=== PATIENT | female | born 1985 | race Caucasian/White ===

== ENCOUNTER 2020-05-25 05:50 | Inpatient (IN) | payer MEDICAID ==
[2020-05-25] MEDS ORDERED: Lactated Ringers 1,000 ML IV SCH ×2 (06:00→07:00)
[2020-05-25] MEDS ORDERED: fentaNYL 100 MCG/2 ML SDV IVPUSH PRN (06:01)
[2020-05-25] MEDS ORDERED: Ondansetron 4 MG/2 ML SDV ONE (06:36)
[2020-05-25] MEDS ORDERED: Ondansetron 4 MG/2 ML SDV IVPUSH PRN (06:46)
[2020-05-25] MEDS ORDERED: Acetaminophen 325 MG Tab PO PRN ×2 (06:46→08:36)
[2020-05-25] MEDS ORDERED: Methylergonovine 0.2 MG/1 ML Amp IM PRN ×2 (06:46)
[2020-05-25] MEDS ORDERED: Carboprost Tromethamine 250 MCG/1 ML Amp IM PRN ×3 (06:46→08:36)
[2020-05-25] MEDS ORDERED: Misoprostol 400 MCG (4 X 100 MCG TAB) RECTAL PRN ×2 (06:46→08:36)
[2020-05-25] MEDS ORDERED: Lactated Ringers 1,000 ML IV ONE (06:46)
[2020-05-25] MEDS ORDERED: Tranexamic Acid 1,000 MG in Sodium Chloride 0.9% 100 ML IV PRN ×2 (06:46→08:36)
[2020-05-25] MEDS ORDERED: Lidocaine 1% 30 ML SDV INJECT PRN (06:46)
[2020-05-25] MEDS ORDERED: Sodium Chloride 0.9% 10 ML Syringe FLUSH PRN ×2 (06:46→08:36)
[2020-05-25] MEDS ORDERED: Oxytocin/Normal Saline 30 UNIT/500 ML BAG IV SCH (07:00)
[2020-05-25] MEDS ORDERED: Misoprostol 25 MCG (1/4 of 100 MCG) Tab VAG SCH (07:00)
[2020-05-25] MEDS ORDERED: fentaNYL 100 MCG/2 ML SDV ONE (07:06)
[2020-05-25] MEDS ORDERED: EPINEPHrine 1 MG/1 ML Amp ONE ×2 (07:06→18:39)
--- NOTE | 2020-05-25 07:20 | PCM.LDHP ---
L&D History of Present Illness - General Date of Service: 05/25/20 Admit Problem/Dx: Patient Status Order with Admit Dx/Problem 05/25/20 06:46 Patient Status [ADT] Routine Admission Diagnosis/Problem Admission Diagnosis/Problem Labor established Source of Information: Patient - History of Present Illness Introduction:: Patient is a at 31w1d who presented to for contractions last night. Her contractions started around 11 PM but have picked up in frequency. She though she lost her mucous plug around 1 AM. Contractions are becoming more painful. She's had no leakage of fluid or vaginal bleeding. Patient presented to the clinic for a 30 week OB check up but heart tones were not found. Ultrasound confirmed a demise. Fetus was measuring around 22-23 weeks. Arrangement had been made for induction of labor tonight at midnight at [facility] in [place], [place] with Dr. Vicente. Upon arrival to the floor, patient is very uncomfortable with contractions and breathing through them. Per nurse VE, she is 2+ with bulging bag and unknown presenting parts. Patient denies any recent fever, chills, abdominal pain, foul smelling discharge, nausea, vomiting, headache, vision changes, or increased swelling. 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 : 3 Para: 1 Musculoskeletal History: Reports: None Neurological History: Reports: None Psychiatric History: Reports: Anxiety Endocrine/Metabolic History: Reports: None Hematologic History: Reports: None Dermatologic History: Reports: None - Past Surgical History Head Surgeries/Procedures: Reports: None Social & Family History - Family History Family Medical History: No Pertinent Family History Cardiac: Reports: Heart Failure - Tobacco Use Tobacco Use Status *Q: Current Every Day Tobacco User - Tobacco Core Measures Tobacco Use/Smoking Within Last 30 Days: Yes - Caffeine Use Caffeine Use: Reports: None - Alcohol Use Alcohol Use History: No - Recreational Drug Use Recreational Drug Use: No Drug Use in Last 12 Months: No - Sexual History Sexual History: Reports: Sexually Active, Single Partner - Living Situation & Occupation Living situation: Reports: with Significant Other Occupation: Employed H&P Review of Systems - Review of Systems: Review Of Systems: See Below General: Denies: Fever, Chills, Weakness HEENT: Denies: Headaches, Sinus Congestion, Sore Throat, Visual Changes Pulmonary: Denies: Shortness of Breath, Cough Cardiovascular: Denies: Chest Pain, Edema, Lightheadedness, Blood Pressure Problem Gastrointestinal: Reports: Constipation. Denies: Abdominal Pain, Diarrhea, Nausea, Vomiting Genitourinary: Denies: Discharge Musculoskeletal: Denies: Muscle Pain Skin: Denies: Rash Neurological: Denies: Dizziness, Headache, Weakness L&D Exam - Exam Exam: See Below - Vital Signs Vital Signs: Last Vital Signs Temp 99.7 F 05/25/20 05:52 Pulse 81 05/25/20 05:52 Resp 18 05/25/20 05:52 BP 129/66 05/25/20 05:52 Pulse Ox Weight: 189 lb - OB Specific Fundal Height In cm: 23 Contraction Duration (sec): 40-80 Contraction Frequency (min): 2-3 Contraction Intensity: Moderate to Strong - Cabrera Score Cabrera Score Cervix Position: Midposition Cabrera Score Consistency: Soft Cabrera Score Effacement: 51-70% Cabrera Score Dilation: 3-4 cm - Exam General: Alert, Oriented HEENT: Conjunctiva Clear, Hearing Intact, Pupils Equal, Pupils Reactive Neck: Supple, Trachea Midline Lungs: Clear to Auscultation, Normal Respiratory Effort Cardiovascular: Regular Rate, Regular Rhythm, Normal S1, Normal S2 GI/Abdominal Exam: Soft, Non-Tender, No Distention Extremities: Normal Inspection, Non-Tender, No Pedal Edema Skin: Warm, Dry, Intact Neurological: Reflexes Equal Bilateral. No: Focal Deficit Psychiatric: Alert, Normal Affect, Normal Mood - Patient Data Lab Results Last 24 hrs: Laboratory Results - last 24 hr 05/25/20 05/25/20 Range/Units 05:50 06:25 WBC 14.6 H (5.0-10.0) 10^3/uL RBC 3.98 L (4.2-5.4) 10^6/uL Hgb 14.1 (12.0-16.0) g/dL Hct 38.8 (37.0-47.0) % MCV 97.5 (80-100) fL MCH 35.4 H (27.0-34.0) pg MCHC 36.3 H (33.0-35.0) g/dL Plt Count 278 (150-450) 10^3/uL SARS CoV-2 RNA Rapid GEORGE Negative (NEGATIVE) Result Diagrams: 05/25/20 06:25 - Problem List (1) demise in antonio greater than 22 weeks gestation, antepartum SNOMED Code(s): 67231539, 036890139 ICD Code: O36.4XX0 - MATERNAL CARE FOR INTRAUTERINE , NOT APPLICABLE OR UNSP Status: Acute (2) Rubella immune SNOMED Code(s): 454664924 ICD Code: Z78.9 - OTHER SPECIFIED HEALTH STATUS Status: Acute (3) Tobacco use disorder SNOMED Code(s): 746570977 ICD Code: F17.200 - NICOTINE DEPENDENCE, UNSPECIFIED, UNCOMPLICATED Status: Acute Problem List Initiated/Reviewed/Updated: Yes Orders Last 24hrs: Active Orders 24 hr Category Date Time Status Patient Status [ADT] Routine ADT 05/25/20 06:46 Active Notify Provider Vital Signs OB [RC] ASDIRECTED Care 05/25/20 06:46 Active Notify Provider [RC] PRN Care 05/25/20 06:46 Active POC Labs [RC] ASDIRECTED Care 05/25/20 06:46 Active Pump Management, Intrathecal [RC] ASDIRECTED Care 05/25/20 06:50 Active Up ad Teresa [RC] ASDIRECTED Care 05/25/20 06:46 Active Vital Signs [RC] PER UNIT ROUTINE Care 05/25/20 06:46 Active Nothing Per Oral Diet [DIET] Diet 05/25/20 Breakfast Active TYPE AND SCREEN [BBK] Routine Lab 05/25/20 06:25 Received Acetaminophen [TylenoL] Med 05/25/20 06:46 Ordered 650 mg PO Q4H PRN Carboprost Tromethamine [Hemabate DS] Med 05/25/20 06:46 Ordered 250 mcg IM ASDIRECTED PRN Carboprost Tromethamine [Hemabate DS] Med 05/25/20 06:46 Ordered 250 mcg IM ASDIRECTED PRN Lactated Ringers [Ringers, Lactated] 1,000 ml Med 05/25/20 06:00 Active IV ASDIRECTED Lactated Ringers [Ringers, Lactated] 1,000 ml Med 05/25/20 07:00 Ordered IV ASDIRECTED Lactated Ringers [Ringers, Lactated] 1,000 ml Med 05/25/20 06:46 Ordered IV BOLUS Lidocaine 1% [Xylocaine-MPF 1%] Med 05/25/20 06:46 Ordered 30 ml INJECT ASDIRECTED PRN Methylergonovine [Methergine] Med 05/25/20 06:46 Ordered 0.2 mg IM ASDIRECTED PRN Methylergonovine [Methergine] Med 05/25/20 06:46 Ordered 0.2 mg IM ASDIRECTED PRN Ondansetron [Zofran] Med 05/25/20 06:46 Ordered 4 mg IVPUSH Q4H PRN Oxytocin/Normal Saline [Pitocin in NS 30 UNIT/500 ML] Med 05/25/20 07:00 Ordered 30 unit in 500 ml IV TITRATE Sodium Chloride 0.9% [Saline Flush] Med 05/25/20 06:46 Ordered 10 ml FLUSH ASDIRECTED PRN Tranexamic Acid [Cyklokapron] 1,000 mg Med 05/25/20 06:46 Ordered Sodium Chloride 0.9% [Normal Saline] 100 ml IV ONETIME fentaNYL [Sublimaze] Med 05/25/20 06:01 Active 100 mcg IVPUSH Q1H PRN miSOPROStoL [Cytotec] Med 05/25/20 07:00 Ordered 25 mcg VAG Q4H miSOPROStoL [Cytotec] Med 05/25/20 06:46 Ordered 800 mcg RECTAL ASDIRECTED PRN Saline Lock Insert [OM.PC] Routine Oth 05/25/20 06:46 Ordered Resuscitation Status Routine Resus Stat 05/25/20 06:46 Ordered Medication Orders Acetaminophen (Tylenol) 650 mg PO Q4H PRN PRN Reason: Pain (Mild 1-3) and fever Carboprost Tromethamine (Hemabate Ds) 250 mcg IM ASDIRECTED PRN PRN Reason: HEMORRHAGE Carboprost Tromethamine (Hemabate Ds) 250 mcg IM ASDIRECTED PRN PRN Reason: Post Hemorrhage Fentanyl (Sublimaze) 100 mcg IVPUSH Q1H PRN PRN Reason: Pain Last Admin: 05/25/20 06:12 Dose: 100 mcg Documented by: NICMEG Lactated Ringer's (Ringers, Lactated) 1,000 mls @ 125 mls/hr IV ASDIRECTED NUNU Lactated Ringer's (Ringers, Lactated) 1,000 mls @ 999 mls/hr IV BOLUS ONE Stop: 05/25/20 07:46 Lactated Ringer's (Ringers, Lactated) 1,000 mls @ 125 mls/hr IV ASDIRECTED NUNU Tranexamic Acid 1,000 mg/ (Sodium Chloride) 110 mls @ 660 mls/hr IV ONETIME PRN PRN Reason: Bleeding Oxytocin/Sodium Chloride (Pitocin In Ns 30 Unit/500 Ml) 30 unit in 500 mls @ 2 mls/hr IV TITRATE NUNU; Protocol Lidocaine HCl (Xylocaine-Mpf 1%) 30 ml INJECT ASDIRECTED PRN PRN Reason: Perineal Repair Methylergonovine Maleate (Methergine) 0.2 mg IM ASDIRECTED PRN PRN Reason: Hemorrhage Methylergonovine Maleate (Methergine) 0.2 mg IM ASDIRECTED PRN PRN Reason: Post Hemorrhage Misoprostol (Cytotec) 800 mcg RECTAL ASDIRECTED PRN PRN Reason: Hemorrhage Misoprostol (Cytotec) 25 mcg VAG Q4H NUNU Stop: 05/25/20 15:01 Ondansetron HCl (Zofran) 4 mg IVPUSH Q4H PRN PRN Reason: Nausea/Vomiting Sodium Chloride (Saline Flush) 10 ml FLUSH ASDIRECTED PRN PRN Reason: Keep Vein Open Assessment/Plan Comment:: Patient jerry every 3-4 minutes and very uncomfortable with contractions. Fetus is only measuring 22-23 weeks and she is making cervical change. Current r oad conditions would make travel slow and hazardous so patient will be admitted to L&D here. Labs ordered including type and screen. Discussed pain control with patient and she can get intrathecal at any time. Fentanyl will be available until then. Discussed demise work up with the parents and they would like to proceed with an autopsy and chromosome work up if the cost is reasonable. I will talk with lab to see if we can get them this information. Placenta will be sent to pathology. Post hemorrhage precautions in place. Will utilize pitocin if contractions slow down. Will monitor closely for signs of infection. Kelly Jones MD
--- NOTE | 2020-05-25 07:43 | PCM.PRNOTE ---
- Free Text/Narrative Note: Requested to provide analgesia to full term patient in severe pain. Upon entering the room, patient is sitting on edge of bed complaining of severe abdominal/pelvic pain and discomfort. Procedure was discussed with patient including adverse outcomes and expectations. Pt consented to analgesia, SAB/IT. Pt placed into a proper sitting position. Landmarks for SAB/IT were identified and marked. Hands were washed and appropriate PPE was applied. Back was prepped with betadine x3. A sterile, transparent, fenestrated drape was applied. Excess betadine was removed. Using 3 mL of a 1% lidocaine solution, a skin wheel was placed at the L2/L3 interspace. A 24 ga (4 inch) Pencan spinal needle was inserted until positive for CSF. Negative for heme or paresthesias. Injected fentanyl 25 mcg, sufentanil 25 mcg, and 7.5 mg of a 0.75% bupivacaine solution with an epi wash. Pt was placed left lateral tilt position for approximately 20 minutes. There were zero complications or adverse outcomes. Will continue to monitor. Procedure Date & Time: 05/25/2020 [id number]
[2020-05-25] MEDS ORDERED: Oxytocin 10 Units/1 ML SDV IM PRN (08:36)
[2020-05-25] MEDS ORDERED: Zolpidem 5 MG Tab PO PRN (08:36)
[2020-05-25] MEDS ORDERED: Ibuprofen 800 MG Tab PO PRN (08:36)
[2020-05-25] MEDS ORDERED: Benzocaine/Menthol 20%-0.5% Spray 56 GM Canister TOP PRN (08:36)
[2020-05-25] MEDS ORDERED: Simethicone 80 MG Tab.Chew PO PRN (08:36)
[2020-05-25] MEDS ORDERED: Docusate Sodium 100 MG Cap PO PRN (08:36)
[2020-05-25] MEDS ORDERED: Prenatal Multivitamin with Calcium/Folic Acid/Iron Tab PO SCH (09:00)
[2020-05-25 14:20] VITALS: BP 109/52; PULSE 62
--- NOTE | 2020-05-25 16:09 | PCM.DEL ---
L & D Note - General Info Date of Service: 05/25/20 - Delivery Note Labor: Spontaneous Delivery Outcome: Stillbirth Delivery Method: Spontaneous Vaginal Delivery-Single Presentation: Unable to Assess Anesthesia Type: Intrathecal Episiotomy Type: None Laceration: None Placenta: Intact, Spontaneous Delivery Comments (Free Text/Narrative):: Patient is female with known 30 week demise who presented to L&D via ambulance in active labor. She was given an intrathecal and stillborn was delivered en caul. Cord was cut and infant was cleaned and wrapped and given to mother to hold. Placenta delivered spontaneously intact, very firm and calcified. Uterus was firm with no bleeding. Mother remained in stable condition. Placenta sent to pathology. Infant remained in room with mother. - General Info Date of Service: 05/25/20 - Patient Data Vitals - Most Recent: Last Vital Signs Temp 99.3 F 05/25/20 10:00 Pulse 62 05/25/20 10:05 Resp 12 05/25/20 07:45 BP 109/52 L 05/25/20 10:05 Pulse Ox 100 05/25/20 08:15 Weight - Most Recent: 189 lb I&O - Last 24 Hours: Intake & Output 05/25/20 05/25/20 05/25/20 06:59 14:59 22:59 Intake Total 2400 Balance 2400 Lab Results Last 24 Hours: Laboratory Results - last 24 hr 05/25/20 05/25/20 05/25/20 Range/Units 05:50 06:25 06:25 WBC 14.6 H (5.0-10.0) 10^3/uL RBC 3.98 L (4.2-5.4) 10^6/uL Hgb 14.1 (12.0-16.0) g/dL Hct 38.8 (37.0-47.0) % MCV 97.5 (80-100) fL MCH 35.4 H (27.0-34.0) pg MCHC 36.3 H (33.0-35.0) g/dL Plt Count 278 (150-450) 10^3/uL SARS CoV-2 RNA Rapid GEORGE Negative (NEGATIVE) Blood Type A POSITIVE Gel Antibody Screen Negative Med Orders - Current: Current Medications Acetaminophen (Tylenol) 650 mg PO Q4H PRN PRN Reason: Pain (Mild 1-3) and fever Acetaminophen (Tylenol) 650 mg PO Q6H PRN PRN Reason: mild pain or fever Benzocaine/Menthol (Dermoplast Pain Relief [place]) 0 gm TOP Q4H PRN PRN Reason: Perineal comfort measures Carboprost Tromethamine (Hemabate Ds) 250 mcg IM ASDIRECTED PRN PRN Reason: HEMORRHAGE Carboprost Tromethamine (Hemabate Ds) 250 mcg IM ASDIRECTED PRN PRN Reason: Post Hemorrhage Carboprost Tromethamine (Hemabate Ds) 250 mcg IM ASDIRECTED PRN PRN Reason: Excessive vaginal bleeding Docusate Sodium (Colace) 100 mg PO BID PRN PRN Reason: Constipation Fentanyl (Sublimaze) 100 mcg IVPUSH Q1H PRN PRN Reason: Pain Last Admin: 05/25/20 06:12 Dose: 100 mcg Documented by: Lactated Ringer's (Ringers, Lactated) 1,000 mls @ 125 mls/hr IV ASDIRECTED NUNU Last Admin: 05/25/20 07:20 Dose: 125 mls/hr Documented by: Lactated Ringer's (Ringers, Lactated) 1,000 mls @ 125 mls/hr IV ASDIRECTED NUNU Tranexamic Acid 1,000 mg/ (Sodium Chloride) 110 mls @ 660 mls/hr IV ONETIME PRN PRN Reason: Bleeding Oxytocin/Sodium Chloride (Pitocin In Ns 30 Unit/500 Ml) 30 unit in 500 mls @ 2 mls/hr IV TITRATE NUNU; Protocol Last Titration: 05/25/20 10:56 Dose: 0 munits/min, 0 mls/hr Documented by: Tranexamic Acid 1,000 mg/ (Sodium Chloride) 110 mls @ 660 mls/hr IV ONETIME PRN PRN Reason: Bleeding Ibuprofen (Motrin) 800 mg PO Q8H PRN PRN Reason: Mild Pain or Fever Lidocaine HCl (Xylocaine-Mpf 1%) 30 ml INJECT ASDIRECTED PRN PRN Reason: Perineal Repair Methylergonovine Maleate (Methergine) 0.2 mg IM ASDIRECTED PRN PRN Reason: Hemorrhage Methylergonovine Maleate (Methergine) 0.2 mg IM ASDIRECTED PRN PRN Reason: Post Hemorrhage Misoprostol (Cytotec) 800 mcg RECTAL ASDIRECTED PRN PRN Reason: Hemorrhage Misoprostol (Cytotec) 800 mcg RECTAL ONETIME PRN PRN Reason: Hemorrhage Ondansetron HCl (Zofran) 4 mg IVPUSH Q4H PRN PRN Reason: Nausea/Vomiting Oxytocin (Pitocin) 10 unit IM ONETIME PRN PRN Reason: Bleeding Prenat Multivit/[place]/Iron/Folic Ac ( Plus Iron) 1 each PO DAILY NUNU Simethicone (Simethicone) 80 mg PO Q4H PRN PRN Reason: Gas Sodium Chloride (Saline Flush) 10 ml FLUSH ASDIRECTED PRN PRN Reason: Keep Vein Open Sodium Chloride (Saline Flush) 10 ml FLUSH ASDIRECTED PRN PRN Reason: Keep Vein Open Zolpidem Tartrate (Ambien) 5 mg PO BEDTIME PRN PRN Reason: Insomnia Discontinued Medications Epinephrine HCl (Adrenalin) Confirm Administered Dose 1 mg .ROUTE .STK-MED ONE Stop: 05/25/20 07:07 Fentanyl (Sublimaze) Confirm Administered Dose 100 mcg .ROUTE .STK-MED ONE Stop: 05/25/20 07:07 Lactated Ringer's (Ringers, Lactated) 1,000 mls @ 999 mls/hr IV BOLUS ONE Stop: 05/25/20 07:46 Last Admin: 05/25/20 06:45 Dose: 999 mls/hr Documented by: Misoprostol (Cytotec) 25 mcg VAG Q4H NUNU Stop: 05/25/20 15:01 Ondansetron HCl (Zofran) Confirm Administered Dose 4 mg .ROUTE .STK-MED ONE Stop: 05/25/20 06:37 Last Admin: 05/25/20 06:45 Dose: 4 mg Documented by: Sufentanil Citrate (Sufenta) Confirm Administered Dose 50 mcg .ROUTE .STK-MED ONE Stop: 05/25/20 07:07 - Problem List & Annotations (1) demise in antonio greater than 22 weeks gestation, antepartum SNOMED Code(s): 50642470, 986906781 Code(s): O36.4XX0 - MATERNAL CARE FOR INTRAUTERINE , NOT APPLICABLE OR UNSP Status: Acute (2) Rubella immune SNOMED Code(s): 728888023 Code(s): Z78.9 - OTHER SPECIFIED HEALTH STATUS Status: Acute (3) Tobacco use disorder SNOMED Code(s): 861688273 Code(s): F17.200 - NICOTINE DEPENDENCE, UNSPECIFIED, UNCOMPLICATED Status: Acute (4) Stillbirth with normal delivery SNOMED Code(s): 171724703 Code(s): Z37.1 - SINGLE STILLBIRTH Status: Acute - Problem List Review Problem List Initiated/Reviewed/Updated: Yes - My Orders Last 24 Hours: My Active Orders 05/25/20 06:00 Lactated Ringers [Ringers, Lactated] 1,000 ml IV ASDIRECTED 05/25/20 06:01 fentaNYL [Sublimaze] 100 mcg IVPUSH Q1H PRN 05/25/20 06:46 Patient Status [ADT] Routine Notify Provider Vital Signs OB [RC] ASDIRECTED POC Labs [RC] ASDIRECTED Up ad Teresa [RC] ASDIRECTED Vital Signs [RC] ,20 Acetaminophen [TylenoL] 650 mg PO Q4H PRN Carboprost Tromethamine [Hemabate DS] 250 mcg IM ASDIRECTED PRN Carboprost Tromethamine [Hemabate DS] 250 mcg IM ASDIRECTED PRN Lidocaine 1% [Xylocaine-MPF 1%] 30 ml INJECT ASDIRECTED PRN Methylergonovine [Methergine] 0.2 mg IM ASDIRECTED PRN Methylergonovine [Methergine] 0.2 mg IM ASDIRECTED PRN Ondansetron [Zofran] 4 mg IVPUSH Q4H PRN Sodium Chloride 0.9% [Saline Flush] 10 ml FLUSH ASDIRECTED PRN Tranexamic Acid [Cyklokapron] 1,000 mg Sodium Chloride 0.9% [Normal Saline] 100 ml IV ONETIME miSOPROStoL [Cytotec] 800 mcg RECTAL ASDIRECTED PRN Saline Lock Insert [OM.PC] Routine Resuscitation Status Routine 05/25/20 07:00 Lactated Ringers [Ringers, Lactated] 1,000 ml IV ASDIRECTED Oxytocin/Normal Saline [Pitocin in NS 30 UNIT/500 ML] 30 unit in 500 ml IV TITRATE 05/25/20 Breakfast Regular Diet [DIET] 05/25/20 08:36 Acetaminophen [TylenoL] 650 mg PO Q6H PRN Benzocaine/Menthol [Dermoplast Pain Relief [place]] See Dose Instructions TOP Q4H PRN Carboprost Tromethamine [Hemabate DS] 250 mcg IM ASDIRECTED PRN Docusate Sodium [Colace] 100 mg PO BID PRN Ibuprofen [Motrin] 800 mg PO Q8H PRN Oxytocin [Pitocin] 10 unit IM ONETIME PRN Simethicone 80 mg PO Q4H PRN Sodium Chloride 0.9% [Saline Flush] 10 ml FLUSH ASDIRECTED PRN Tranexamic Acid [Cyklokapron] 1,000 mg Sodium Chloride 0.9% [Normal Saline] 100 ml IV ONETIME Zolpidem [Ambien] 5 mg PO BEDTIME PRN miSOPROStoL [Cytotec] 800 mcg RECTAL ONETIME PRN Assess Lochia [WOMSER] Per Unit Routine Assess Uterine Involution [WOMSER] Per Unit Routine Breast Pump [WOMSER] Per Unit Routine Ice Therapy [OM.PC] Per Unit Routine Perineal Care [OM.PC] Per Unit Routine Saline Lock Insert [OM.PC] Urgent Sitz Bath [OM.PC] Per Unit Routine 05/25/20 08:37 Vital Signs [RC] PFP 05/25/20 09:00 Vit with Ca/FA/Iron [ Plus Iron] 1 each PO DAILY 05/25/20 Lunch Regular Diet [DIET] 05/25/20 Dinner Regular Diet [DIET]
[2020-05-25] MEDS ORDERED: fentaNYL 100 MCG/2 ML SDV ITHECAL ONE (18:39)
--- NOTE | 2020-05-26 09:40 | PCM.DCSUM1 ---
Discharge Summary - Hospital Course Free Text/Narrative:: Patient is female who delivered stillborn at 31w1d. She has been feeling well, urinating spontaneously. She is walking without difficulty. Her lochia is minimal. Her pain is minimal. The loading machine tool setter was by to visit with parents. They have decided to not proceed with an autopsy. home has been notified and will picking machine operator helper infant shortly. Mom and dad dealing with loss appropriately and have no other concerns today. They wish to go home this evening. Mother's vitals remain normal. - Discharge Data Discharge Date: 05/25/20 Discharge Disposition: Home, Self-Care 01 Condition: Good - Referral to Home Health Primary Care Physician: [facility] - Discharge Diagnosis/Problem(s) (1) demise in antonio greater than 22 weeks gestation, antepartum SNOMED Code(s): 43883675, 528115824 ICD Code: O36.4XX0 - MATERNAL CARE FOR INTRAUTERINE , NOT APPLICABLE OR UNSP Status: Acute (2) Rubella immune SNOMED Code(s): 822525777 ICD Code: Z78.9 - OTHER SPECIFIED HEALTH STATUS Status: Acute (3) Tobacco use disorder SNOMED Code(s): 196301050 ICD Code: F17.200 - NICOTINE DEPENDENCE, UNSPECIFIED, UNCOMPLICATED Status: Acute - Patient Instructions Diet: Regular Diet as Tolerated Activity: As Tolerated, No Strenuous Activities Showering/Bathing: May Shower Notify Provider of: Fever, Increased Pain, Swelling and Redness, Nausea and/or Vomiting Other/Special Instructions: Wear supportive bra. Call or come in if you have heavy vaginal bleeding, signs of bladder infection, fever, foul-smelling vaginal discharge, baby-blues that continue to worsen after 2 weeks. - Discharge Plan *PRESCRIPTION DRUG MONITORING PROGRAM REVIEWED*: Not Applicable *COPY OF PRESCRIPTION DRUG MONITORING REPORT IN PATIENT DARLINE: Not Applicable Patient Handouts: Vaginal Delivery, Loss, Care After - Discharge Summary/Plan Comment DC Time >30 min.: No - Patient Data Vitals - Most Recent: Last Vital Signs Temp 99.3 F 05/25/20 10:00 Pulse 62 05/25/20 10:05 Resp 12 05/25/20 07:45 BP 109/52 L 05/25/20 10:05 Pulse Ox 100 05/25/20 08:15 Weight - Most Recent: 189 lb Med Orders - Current: Current Medications Discontinued Medications Acetaminophen (Tylenol) 650 mg PO Q4H PRN PRN Reason: Pain (Mild 1-3) and fever Acetaminophen (Tylenol) 650 mg PO Q6H PRN PRN Reason: mild pain or fever Last Admin: 05/25/20 16:19 Dose: 650 mg Documented by: Benzocaine/Menthol (Dermoplast Pain Relief [place]) 0 gm TOP Q4H PRN PRN Reason: Perineal comfort measures Carboprost Tromethamine (Hemabate Ds) 250 mcg IM ASDIRECTED PRN PRN Reason: HEMORRHAGE Carboprost Tromethamine (Hemabate Ds) 250 mcg IM ASDIRECTED PRN PRN Reason: Post Hemorrhage Carboprost Tromethamine (Hemabate Ds) 250 mcg IM ASDIRECTED PRN PRN Reason: Excessive vaginal bleeding Docusate Sodium (Colace) 100 mg PO BID PRN PRN Reason: Constipation Epinephrine HCl (Adrenalin) Confirm Administered Dose 1 mg .ROUTE .STK-MED ONE Stop: 05/25/20 07:07 Fentanyl (Sublimaze) 100 mcg IVPUSH Q1H PRN PRN Reason: Pain Last Admin: 05/25/20 06:12 Dose: 100 mcg Documented by: Fentanyl (Sublimaze) Confirm Administered Dose 100 mcg .ROUTE .STK-MED ONE Stop: 05/25/20 07:07 Lactated Ringer's (Ringers, Lactated) 1,000 mls @ 125 mls/hr IV ASDIRECTED NUNU Last Admin: 05/25/20 07:20 Dose: 125 mls/hr Documented by: Lactated Ringer's (Ringers, Lactated) 1,000 mls @ 999 mls/hr IV BOLUS ONE Stop: 05/25/20 07:46 Last Admin: 05/25/20 06:45 Dose: 999 mls/hr Documented by: Lactated Ringer's (Ringers, Lactated) 1,000 mls @ 125 mls/hr IV ASDIRECTED NUNU Tranexamic Acid 1,000 mg/ (Sodium Chloride) 110 mls @ 660 mls/hr IV ONETIME PRN PRN Reason: Bleeding Oxytocin/Sodium Chloride (Pitocin In Ns 30 Unit/500 Ml) 30 unit in 500 mls @ 2 mls/hr IV TITRATE NUNU; Protocol Last Titration: 05/25/20 10:56 Dose: 0 munits/min, 0 mls/hr Documented by: Tranexamic Acid 1,000 mg/ (Sodium Chloride) 110 mls @ 660 mls/hr IV ONETIME PRN PRN Reason: Bleeding Ibuprofen (Motrin) 800 mg PO Q8H PRN PRN Reason: Mild Pain or Fever Last Admin: 05/25/20 18:15 Dose: 800 mg Documented by: Lidocaine HCl (Xylocaine-Mpf 1%) 30 ml INJECT ASDIRECTED PRN PRN Reason: Perineal Repair Methylergonovine Maleate (Methergine) 0.2 mg IM ASDIRECTED PRN PRN Reason: Hemorrhage Methylergonovine Maleate (Methergine) 0.2 mg IM ASDIRECTED PRN PRN Reason: Post Hemorrhage Misoprostol (Cytotec) 800 mcg RECTAL ASDIRECTED PRN PRN Reason: Hemorrhage Misoprostol (Cytotec) 25 mcg VAG Q4H NUNU Stop: 05/25/20 15:01 Misoprostol (Cytotec) 800 mcg RECTAL ONETIME PRN PRN Reason: Hemorrhage Ondansetron HCl (Zofran) Confirm Administered Dose 4 mg .ROUTE .STK-MED ONE Stop: 05/25/20 06:37 Last Admin: 05/25/20 06:45 Dose: 4 mg Documented by: Ondansetron HCl (Zofran) 4 mg IVPUSH Q4H PRN PRN Reason: Nausea/Vomiting Oxytocin (Pitocin) 10 unit IM ONETIME PRN PRN Reason: Bleeding Prenat Multivit/Model [employer]/Iron/Folic Ac ( Plus Iron) 1 each PO DAILY [facility] Simethicone (Simethicone) 80 mg PO Q4H PRN PRN Reason: Gas Sodium Chloride (Saline Flush) 10 ml FLUSH ASDIRECTED PRN PRN Reason: Keep Vein Open Sodium Chloride (Saline Flush) 10 ml FLUSH ASDIRECTED PRN PRN Reason: Keep Vein Open Sufentanil Citrate (Sufenta) Confirm Administered Dose 50 mcg .ROUTE .STK-MED ONE Stop: 05/25/20 07:07 Zolpidem Tartrate (Ambien) 5 mg PO BEDTIME PRN PRN Reason: Insomnia
== END 2020-05-25 18:40 | disposition home or self-care (01) | DRG 807 ==
LOC: DL.OBCHECK 05:50 → DL.OB 06:46
PROVIDERS: ADMIT Family Medicine; ATTEND Family Medicine
PROC: 10E0XZZ Delivery of Products of Conception, External Approach (ICD-10-PCS; principal; 2020-05-25)
PROC: 3E0S3GC Introduction of Other Therapeutic Substance into Epidural Space, Percutaneous Approach (ICD-10-PCS; 2020-05-25)
DX: O36.4XX0 Maternal care for intrauterine death, not applicable or unspecified (principal); Z37.1 Single stillbirth; Z3A.30 30 weeks gestation of pregnancy; Z78.9 Other specified health status; O99.332 Smoking (tobacco) complicating pregnancy, second trimester; F17.200 Nicotine dependence, unspecified, uncomplicated; Z20.828 Contact with and (suspected) exposure to other viral communicable diseases
CPT/HCPCS: 01967; 36415; 51701; 59409; 85027; 86850; 86900; 86901; A9270-GY; J0171; J2405; J2590; J3010; J7120; U0002